=== PATIENT | male | born 1980 | race Caucasian/White ===

== ENCOUNTER 2021-06-01 01:43 | Emergency (ER) | payer OTHER ==
[~2021-06-01] VITALS: Ht 180.3 cm; Wt 99.8 kg
[2021-06-01 01:56] VITALS: BP 128/76
--- NOTE | 2021-06-01 03:05 | NUR ---
PT TAKEN TO BED 1
--- NOTE | 2021-06-01 03:18 | NUR ---
40 YO M BIB SELF WITH C/C OF DEHISCENCE OF SUTURES FOR HERNIAL REPAIR. SURGERY OCCURED 2 WKS AGO. SWELLING STARTS AT SUTURE LINE DOWN TO GROIN AREA. PT STATES HE HAS SHARP 9/10 PAIN. TOOK TYLENOL W CODEINE WITH LITTLE RELIEF. MOVING AROUND CAUSES MORE PAIN. AT REST NO PAIN. BED LOCKED IN LOWEST POSITION, SIDE RAILS X1. DENIES HX AND RX NKA
--- NOTE | 2021-06-01 03:50 | NUR ---
PT IS SLEEPING, EQUAL RISE AND FALL OF CHEST WALL, IN STABLE CONDITION. BED LOCKED IN LOWEST POSITION, SIDE RAILS X1.
--- NOTE | 2021-06-01 04:24 | NUR ---
PT IS SLEEPING, EQUAL RISE AND FALL OF CHEST WALL, IN STABLE CONDITION. BED LOCKED IN LOWEST POSITION, SIDE RAILS X1.
--- NOTE | 2021-06-01 04:43 | NUR ---
PROVIDED WATER WITH ICE PERREQUEST.
--- NOTE | 2021-06-01 05:19 | NUR ---
US AT BEDSIDE.
[2021-06-01 05:30] VITALS: BP 106/62
--- NOTE | 2021-06-01 06:17 | NUR ---
PT IS SLEEPING, EQUAL RISE AND FALL OF CHEST WALL, IN STABLE CONDITION. BED LOCKED IN LOWEST POSITION, SIDE RAILS X1.
--- NOTE | 2021-06-01 06:55 | NUR ---
SIVAN CARRILLO AT BEDSIDE.
[2021-06-01] MEDS ORDERED: LEVO500T98 PO (07:01)
--- NOTE | 2021-06-01 07:08 | NUR ---
REPORT GIVEN TO JO ALVARENGA. TRANSFER OF CARE AT THIS TIME.
--- NOTE | 2021-06-01 07:29 | NUR ---
Patient discharged with v/s stable. Written and verbal after care instructions given about epididymitis and explained. Patient verbalized understanding. Ambulatory with steady gait. All questions addressed prior to discharge. Advised to follow up with PMD and surgeon.
== END 2021-06-01 07:29 | disposition home or self-care (01) ==
LOC: MED 01:43
DX: T81.30XA Disruption of wound, unspecified, initial encounter (principal); N50.89 Other specified disorders of the male genital organs; Z79.899 Other long term (current) drug therapy; Z98.890 Other specified postprocedural states; X58.XXXA Exposure to other specified factors, initial encounter
CPT/HCPCS: 76870; 99284